=== PATIENT | male | born 1955 | race Caucasian/White ===

== ENCOUNTER 2019-02-16 13:24 | Emergency (ER) | payer BC ==
[~2019-02-16] VITALS: Ht 170.2 cm; Wt 78.9 kg
--- NOTE | 2019-02-16 13:31 | NUR ---
DANICA CARRERA AT BEDSIDE
--- NOTE | 2019-02-16 13:32 | NUR ---
PT CAME INTO THE ED C/O R SIDED RIB AREA PAIN S/P SLIP AND FALL AT 1300 TODAY. PT AAOX4, VSS, BREATHING EVEN AND UNLABORED W/ NO ACUTE DISTRESS NOTED. PT CONNECTED TO THE MONITOR.
--- NOTE | 2019-02-16 13:45 | NUR ---
PT TAKEN TO XRAY
--- NOTE | 2019-02-16 13:56 | NUR ---
PT BACK FROM XRAY
--- NOTE | 2019-02-16 14:14 | NUR ---
Patient discharged to home in stable condition. Written and verbal after care instructions given. Patient verbalizes understanding of instruction.
[2019-02-16 14:15] VITALS: BP 134/76
== END 2019-02-16 14:26 | disposition home or self-care (01) ==
LOC: ER 13:24
DX: S20.211A Contusion of right front wall of thorax, initial encounter (principal); J45.909 Unspecified asthma, uncomplicated; Z98.890 Other specified postprocedural states; W01.0XXA Fall on same level from slipping, tripping and stumbling without subsequent striking against object, initial encounter; Y93.01 Activity, walking, marching and hiking; Y92.89 Other specified places as the place of occurrence of the external cause; Y99.8 Other external cause status
CPT/HCPCS: 71100-TC